=== PATIENT | female | born 1990 | race African-American/Black ===

== ENCOUNTER 2018-04-23 11:55 | Emergency (ER) | payer MEDICAID ==
[~2018-04-23] VITALS: Ht 177.8 cm; Wt 89.4 kg
[2018-04-23 12:34] VITALS: BP 126/91
[2018-04-23] MEDS ORDERED: IBUPROFEN 800 MG TAB PO ONE (13:15)
== END 2018-04-23 17:19 | disposition home or self-care (01) ==
LOC: ER 11:59
DX: S00.83XA Contusion of other part of head, initial encounter (principal); H92.01 Otalgia, right ear; Z88.0 Allergy status to penicillin; W01.0XXA Fall on same level from slipping, tripping and stumbling without subsequent striking against object, initial encounter; Y93.89 Activity, other specified; Y92.89 Other specified places as the place of occurrence of the external cause; Y99.8 Other external cause status